=== PATIENT | female | born 1970 | race Two or more races ===

== ENCOUNTER 2018-02-13 04:14 | Emergency (ER) | payer OTHER ==
[~2018-02-13] VITALS: Ht 165.1 cm; Wt 89.8 kg
[2018-02-13 04:27] VITALS: Ht 165.1 cm; Wt 89.8 kg
[2018-02-13 07:38] LABS: BASOPHIL % 0.1 % (0-2); PLATELET COUNT 241 x10^3mcL (130-400)
[2018-02-13 07:40] LABS: RED CELL DISTRIBUTION WIDTH 16.6 % (11.5-14.5)
[2018-02-13 09:17] LABS: UA SPECIFIC GRAVITY 1.025 (1.005-1.035); microscopic required? YES; urine erythrocyte 3+ (NEGATIVE)
[2018-02-13 09:26] VITALS: BP 106/69
== END 2018-02-13 09:26 | disposition home or self-care (01) ==
LOC: ED 04:14
PROVIDERS: Emergency Medicine
DX: O03.4 Incomplete spontaneous abortion without complication (principal)
CPT/HCPCS: J3010; J7030